=== PATIENT | female | born 1965 | race American Indian/Alaskan Native ===

== ENCOUNTER 2016-09-01 13:11 | Outpatient (CLI) | payer OTHER ==
--- NOTE | 2016-09-01 15:30 | Mammography Report ---
BILATERAL DIGITAL SCREENING MAMMOGRAM with CAD: 09/01/16 13:11:00 CLINICAL: Routine screening. COMPARISON:09/08/14 FINDINGS: The breasts are almost entirely fatty.A cluster of benign left outer calcifications. No mass, architectural distortion or suspicious calcifications. IMPRESSION: No mammographic evidence of malignancy. BI-RADS CATEGORY: 2 -- Benign RECOMMENDATION: Routine mammographic screening in one year. COMMENT: Patient follow-up letters are generated by our [employer] application.
== END 2016-09-01 13:12 | disposition home or self-care (01) ==
LOC: SPVWC 13:11
DX: Z12.31 Encounter for screening mammogram for malignant neoplasm of breast (principal)
CPT/HCPCS: 77067; G0202

== ENCOUNTER 2019-07-25 17:36 | Emergency (ER) | payer SELFPAY ==
--- NOTE | 2019-07-25 18:24 | Emergency Department Report ---
Blank Doc - Documentation Documentation: 53-year-old female that presents with chest pain and SOB. This initial assessment/diagnostic orders/clinical plan/treatment(s) is/are subject to change based on patient's health status, clinical progression and re- assessment by fellow clinical providers in the ED. Further treatment and workup at subsequent clinical providers discretion. Patient/guardians urged not to elope from the ED as their condition may be serious if not clinically assessed and managed. Initial orders include: 1- Patient sent to [facility] for further evaluation and treatment 2- EKG 3- labs 4- CXR
[2019-07-25 18:25] VITALS: BP 130/77
--- NOTE | 2019-07-25 18:49 | XRay Report ---
CHEST 2 VIEWS INDICATION / CLINICAL INFORMATION: Chest Pain. COMPARISON: 05/10/2011 FINDINGS: SUPPORT DEVICES: None. HEART / MEDIASTINUM: No significant abnormality. LUNGS / PLEURA: No significant pulmonary or pleural abnormality. .No pneumothorax. ADDITIONAL FINDINGS: No significant additional findings. IMPRESSION: 1. No acute findings. Signer Name: Ricardo Dos Santos MD Signed: 07/25/2019 6:44 PM Workstation Name: [id number]
[2019-07-25 19:11] LABS: Basophils % (Auto) 0.5 % (0.0-1.8); Eosinophils # (Auto) 0.2 K/mm3 (0.0-0.4); Eosinophils % (Auto) 2.1 % (0.0-4.3); Hematocrit 40.7 % (30.3-42.9); Hemoglobin 13.6 gm/dl (10.1-14.3); Lymphocytes # (Auto) 2.5 K/mm3 (1.2-5.4); Lymphocytes % (Auto) 25.8 % (13.4-35.0); Mean Corpuscular HGB Conc 33 % (30-34); Mean Corpuscular Volume 88 fl (79-97); Monocytes # (Auto) 0.7 K/mm3 (0.0-0.8); Monocytes % (Auto) 7.6 % (0.0-7.3); Platelet Count 302 K/mm3 (140-440); Red Blood Count 4.63 M/mm3 (3.65-5.03); Red Cell Distribution Width 13.9 % (13.2-15.2)
[2019-07-25 19:19] LABS: Partial Thromboplastin Time 36.3 Sec. (24.2-36.6)
[2019-07-25 19:33] LABS: Alanine Aminotransferase 11 units/L (7-56); Albumin 3.7 g/dL (3.9-5); BUN/Creatinine Ratio 17; Blood Urea Nitrogen 12 mg/dL (7-17); Calcium 9.8 mg/dL (8.4-10.2)
[2019-07-25 19:34] LABS: Hemolysis Index 15
--- NOTE | 2019-07-25 23:12 | Emergency Department Report ---
ED General Adult HPI - General Chief complaint: Chest Pain Stated complaint: CHEST PRESSURE Time Seen by Provider: 07/25/19 18:23 Source: patient Mode of arrival: Ambulatory Limitations: No Limitations - History of Present Illness Initial comments: Patient is a 53-year-old [place] female with no past medical history except hypertension presents to the ED record acute onset persistent nontraumatic left lateral chest wall pain that radiates to the left posterior mid thoracic area intermittently for the last 1 week after having a dry cough for over one week. Patient states that the pain is worse with any movement but feels like a spasm when it comes. Patient states that the pain also gets worse with any cough or palpation of the area. Patient states that the pain started after she developed upper respiratory infection symptoms characterized by persistent dry cough and nasal and sinus congestion. Patient states that the cough has been persistent and gets the pain worse. Patient states the pain gets worse with any movement but resolves at rest. Patient denies chest pain, shortness of breath, dizziness, syncope, cough, nausea, fever, vomiting, abdominal pain, hematuria, dizziness, traumatic injury or heavy lifting. Patient denies dizziness, fever, chills, chest pain, shortness of breath, nausea, vomiting, hematuria, dysuria, urinary frequency and urgency, headache, heavy lifting, abdominal pain, traumatic injury or fall MD Complaint: left flank pain and left lateral rib cage pain -: Sudden, week(s) (1) Location: back (left lateral rib cage), abdomen (left flank) Radiation: non-radiation Severity scale (0 -10): 6 Quality: aching, sharp Consistency: intermittent Improves with: rest Worsens with: movement Associated Symptoms: denies other symptoms. denies: confusion, chest pain, cough, diaphoresis, fever/chills, headaches, loss of appetite, malaise, nausea/vomiting, shortness of breath, syncope, weakness Treatments Prior to Arrival: none - Related Data Previous Rx's Medication Instructions Recorded Last Taken Type Naproxen 500 mg PO Q12H PRN #24 tablet 07/25/19 Unknown Rx tiZANidine [Zanaflex 4mg TAB] 4 mg PO Q8H PRN #21 tablet 07/25/19 Unknown Rx Allergies Allergy/AdvReac Type Severity Reaction Status Date / Time No Known Allergies Allergy Verified 07/25/19 17:41 ED Review of Systems ROS: Stated complaint: CHEST PRESSURE Other details as noted in HPI ED Past Medical Hx - Past Medical History Previous Medical History?: Yes Hx Hypertension: Yes Hx Diabetes: Yes - Surgical History Past Surgical History?: Yes Additional Surgical History: left foot, gallstone - Social History Smoking Status: Never Smoker Substance Use Type: None - Medications Home Medications: Home Medications Medication Instructions Recorded Confirmed Last Taken Type Naproxen 500 mg PO Q12H PRN #24 tablet 07/25/19 Unknown Rx tiZANidine [Zanaflex 4mg TAB] 4 mg PO Q8H PRN #21 tablet 07/25/19 Unknown Rx ED Physical Exam - General Limitations: No Limitations General appearance: alert, in no apparent distress - Head Head exam: Present: atraumatic, normocephalic, normal inspection - Eye Eye exam: Present: normal appearance, PERRL, EOMI Pupils: Present: normal accommodation - ENT ENT exam: Present: normal exam, normal orophraynx, mucous membranes moist, TM's normal bilaterally, normal external ear exam - Neck Neck exam: Present: normal inspection, full ROM. Absent: tenderness, lymphadenopathy - Respiratory Respiratory exam: Present: normal lung sounds bilaterally, chest wall tenderness (left lateral chest wall and rib cage pain). Absent: respiratory distress, wheezes, rales, rhonchi, accessory muscle use - Cardiovascular Cardiovascular Exam: Present: regular rate, normal rhythm, normal heart sounds. Absent: systolic murmur, diastolic murmur, rubs, gallop - GI/Abdominal GI/Abdominal exam: Present: soft, normal bowel sounds. Absent: tenderness, rebound, hypoactive bowel sounds - Extremities Exam Extremities exam: Present: normal inspection, full ROM, normal capillary refill - Back Exam Back exam: Present: normal inspection, full ROM, tenderness (palpable left lateral rib cage and left flank tenderness), muscle spasm, paraspinal tenderness - Neurological Exam Neurological exam: Present: alert, oriented X3, CN II-XII intact, normal gait, reflexes normal - Psychiatric Psychiatric exam: Present: normal affect, normal mood - Skin Skin exam: Present: warm, dry, intact, normal color. Absent: rash ED Course Vital Signs 07/25/19 18:24 Temperature 97.9 F Pulse Rate 74 Respiratory 20 Rate Blood Pressure 130/77 O2 Sat by Pulse 99 Oximetry ED Medical Decision Making - Lab Data Result diagrams: 07/25/19 18:49 07/25/19 18:49 - EKG Data Rate: normal - EKG Data Interpretation: normal EKG - Radiology Data Radiology results: report reviewed, image reviewed No acute cardiopulmonary abnormalities or pneumonitis. - Medical Decision Making This is a 53-year-old AA female with a history of hypertension presented to the ED recombinant of acute onset persistent nontraumatic left lateral chest wall and rib cage pain that radiates to the left flank and the left posterior mid thoracic area intermittently for the last 1 week. Patient states that the pain is sharp, intermittent and spasmic. In the ED, patient is alert and oriented 3 and is not in distress. Chest x-ray shows no acute cardiopulmonary monitors. EKG shows normal sinus rhythm with ventricular rate of [address] or T- wave abnormalities. All lab tests results were reviewed and are nonactionable including initial and repeat troponin levels. Patient's symptoms are likely due to musculoskeletal strain from persistent cough for over 1 week. Patient was discharged home on pain medications a muscle relaxant, and was advised to follow-up with her primary care physician in 5-7 days for reevaluation or return to the ED immediately if symptoms get worse. - Differential Diagnosis muscle strain; muscle spasm; ACS; Critical care attestation.: If time is entered above; I have spent that time in minutes in the direct care of this critically ill patient, excluding procedure time. ED Disposition Clinical Impression: Spasm of thoracic back muscle Muscle strain of chest wall Qualifiers: Encounter type: initial encounter Qualified Code(s): S29.011A - Strain of muscle and tendon of front wall of thorax, initial encounter Disposition: TO HOME OR SELFCARE Is pt being admited?: No Does the pt Need Aspirin: No Condition: Stable Instructions: Muscle Strain (ED), Muscle Spasm (ED), Musculoskeletal Pain (ED) Additional Instructions: Take medications with food, drink plenty of fluids and follow-up with your primary care physician in 5-7 days for reevaluation. Return to the ED immediately if symptoms get worse. Prescriptions: Naproxen 500 mg PO Q12H PRN #24 tablet PRN Reason: Pain , Severe (7-10) tiZANidine [Zanaflex 4mg TAB] 4 mg PO Q8H PRN #21 tablet PRN Reason: Muscle Spasm Referrals: [facility] [Outside] - 7-10 days Time of Disposition: 23:26 Print Language: KINYARWANDA
== END 2019-07-25 23:45 | disposition home or self-care (01) ==
LOC: ED 17:36
DX: S29.011A Strain of muscle and tendon of front wall of thorax, initial encounter (principal); M62.830 Muscle spasm of back; I10 Essential (primary) hypertension; E11.9 Type 2 diabetes mellitus without complications; X58.XXXA Exposure to other specified factors, initial encounter; Y93.89 Activity, other specified; Y92.89 Other specified places as the place of occurrence of the external cause; Y99.8 Other external cause status
CPT/HCPCS: 36415; 71046; 80053; 84484; 85025; 85610; 85730; 93005; 93010

== ENCOUNTER 2021-02-26 07:21 | Day surgery (SDC) | payer BC ==
[2021-02-26] MEDS ORDERED: SODIUM CHLORIDE 0.9% 500 ML 500 ML IV SCH (08:00)
[2021-02-26 08:44] LABS: Basophils # (Auto) 0.2 K/mm3 (0.0-0.1); Basophils % (Auto) 1.7 % (0.0-1.8); Eosinophils # (Auto) 0.4 K/mm3 (0.0-0.4); Eosinophils % (Auto) 4.5 % (0.0-4.3); Hematocrit 36.3 % (30.3-42.9); Hemoglobin 12.2 gm/dl (10.1-14.3); Lymphocytes # (Auto) 2.2 K/mm3 (1.2-5.4); Lymphocytes % (Auto) 24.4 % (13.4-35.0); Mean Corpuscular HGB Conc 34 % (30-34); Mean Corpuscular Volume 87 fl (79-97); Monocytes # (Auto) 0.6 K/mm3 (0.0-0.8); Monocytes % (Auto) 6.7 % (0.0-7.3); Platelet Count 267 K/mm3 (140-440); Red Blood Count 4.18 M/mm3 (3.65-5.03); Red Cell Distribution Width 15.3 % (13.2-15.2)
[2021-02-26] MEDS ORDERED: MIDAZOLAM 2 MG/2 ML INJ ONE (09:35)
[2021-02-26] MEDS ORDERED: HEPARIN/NS 5000 UNIT/500ML 1,000 ML IR ONE (09:36)
[2021-02-26] MEDS ORDERED: HEPARIN 10,000 UNITS/10 ML VIAL ONE (09:36)
[2021-02-26 09:37] LABS: BUN/Creatinine Ratio 33; Blood Urea Nitrogen 23 mg/dL (7-17); Calcium 10.1 mg/dL (8.4-10.2); Hemolysis Index 10
[2021-02-26] MEDS ORDERED: LIDOCAINE (2%) 20 MG/1 ML VIAL 20 ML MDV INFILTRATI ONE (09:37)
[2021-02-26 09:54] LABS: Partial Thromboplastin Time 44.7 Sec. (24.2-36.6)
[2021-02-26] MEDS: fentaNYL 100 MCG/2 ML INJ ONE ×2 (10:19→10:55)
--- NOTE | 2021-02-26 11:52 | Discharge Summary ---
Short Stay Discharge Plan Activity: advance as tolerated Weight Bearing Status: Partial Weight Bearing Diet: low fat, low cholesterol, low salt Wound: keep clean and dry Special Instructions: no heavy lifting (3 days) Follow up with: FUAD SHEIKH MD [Primary Care Provider] - 7 Days VANESSA ANN MD [Staff Physician] - 7 Days
[2021-02-26] MEDS ORDERED: traMADol 50 MG TAB PO PRN (12:30)
[2021-02-26] MEDS ORDERED: SODIUM CHLORIDE 0.9% 1000 ML 1,000 ML IV SCH (13:00)
--- NOTE | 2021-02-26 13:06 | Cardiac Catherization Report ---
DATE OF SERVICE: 02/26/2021 CARDIAC CATHETERIZATION REPORT REASON FOR PROCEDURE: Shortness of breath, mitral stenosis, aortic stenosis. The patient was referred for preoperative assessment for left rotator cuff surgery; in clinic, we were concerned about cardiac murmur and shortness of breath. Further evaluation revealed stenosis of mitral and aortic valves, prompting a recommendation for right and left heart catheterization. PROCEDURES: 1. Right heart catheterization. 2. Left heart catheterization. 3. Selective left and right coronary angiography. 4. Left ventricular angiography. 5. Sedation time start 1019, end 1047. DESCRIPTION OF PROCEDURE: The patient was prepped and draped in a sterile fashion after informed consent. The right femoral artery and vein were entered using the Seldinger technique, 6-Icelandic sheath was placed in the artery and 8-Icelandic sheath in the vein. A Wahiawa-Vu catheter was then advanced to the pulmonary artery position. A right Jaylen catheter was used to cross the aortic valve. Simultaneous left and right heart filling pressures were then measured. Cardiac output was measured by thermodilution method. The Wahiawa-Vu catheter was then withdrawn, and right heart pressures were recorded on pullback. Following this, left ventricular angiography was performed using a hand injection via the right Jaylen catheter. The right Jaylen was then withdrawn across the aortic valve and transaortic pressures were measured. Angiography of the right coronary artery was then performed using the right Jaylen catheter. This was followed by angiography of the left coronary artery using a #4 left Jaylen catheter. The catheters were then withdrawn, arterial sheath removed and the arteriotomy sealed using an Angio-Seal device. The venous sheath was subsequently removed and manual compression was used for hemostasis over the left femoral vein. The patient was then transferred to the post-procedure unit in stable condition, procedure was well tolerated and there were no complications. FINDINGS: HEMODYNAMICS: The mean right atrial pressure was 20-25. Right ventricular pressure was 64/25. Pulmonary artery pressure was 64/35. The mean pulmonary artery wedge pressure was 30. Left ventricular end diastolic pressure was 25-30. The left ventricular systolic pressure was 160. Ascending aortic pressure was 140/80. The cardiac output was 5.4 liters per minute. MITRAL VALVE: Simultaneous left ventricular end-diastolic and pulmonary artery wedge pressures revealed a mean transmitral gradient of 7.9 mmHg. Using the Gorlin equation, mitral valve area was calculated at 1.8 square cm. AORTIC VALVE: On pullback across the aortic valve, the [id number] gradient was 20. The mean gradient was 12.8 mmHg. Using the Gorlin equation, the aortic valve area was 1.9 square cm. LEFT VENTRICULAR ANGIOGRAPHY: There was normal left ventricular systolic function, ejection fraction 60%. CORONARY ANGIOGRAPHY: The left main coronary artery was angiographically normal. The left anterior descending artery contained mild irregular plaque in its proximal segment, otherwise this vessel and its diagonal branches were angiographically normal. The circumflex artery and its obtuse marginal branches were angiographically normal. The right coronary artery was dominant, and similarly angiographically normal. CONCLUSION: 1. Mild mitral stenosis, with a mean gradient of 7.9, and mitral valve area of 1.8 square cm. 2. Mild aortic stenosis with a mean gradient of 12.8 and then aortic valve area of 1.9 square cm. 3. Moderately severe pulmonary hypertension, with pulmonary artery systolic pressures of 64/35 mmHg. 4. Angiographically near normal coronary arteries. 5. Normal left ventricular systolic function, ejection fraction 60%. RECOMMENDATIONS: 1. Medical therapy and risk factor modification. 2. The patient's mild to moderate severity valve disease will be followed clinically and with serial echocardiography. TID: [id number] RECEIPT: [id number] MALINI
[2021-02-26 15:10] VITALS: BP 125/77
--- NOTE | 2021-02-26 17:49 | Electrocardiograph Report ---
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
== END 2021-02-26 07:22 | disposition home or self-care (01) ==
LOC: CATHLABREC 07:21
PROVIDERS: ATTEND Internal Medicine Cardiovascular Disease
DX: I35.0 Nonrheumatic aortic (valve) stenosis (principal); I05.0 Rheumatic mitral stenosis; R01.1 Cardiac murmur, unspecified; R06.02 Shortness of breath; I10 Essential (primary) hypertension; J45.909 Unspecified asthma, uncomplicated; Z79.899 Other long term (current) drug therapy; Z98.890 Other specified postprocedural states
CPT/HCPCS: 36415; 80048; 85025; 85610; 85730; 93005; 93460; 99156; 99157; C1760; C1769; C1894; J1644; J2250; J3010; J7040; Q9967